=== PATIENT | female | born 1960 | race Native Hawaiian/Other Pacific Islander ===

== ENCOUNTER 2018-02-20 20:54 | Emergency (ER) | payer OTHER ==
[~2018-02-20] VITALS: Ht 165.1 cm; Wt 158.8 kg
[~2018-02-20 20:54] MED LIST: AMLODIPINE BESYLATE PO; ASPIRIN 81 LOW81 MG PO; CATAPRES-T0.2 MG/21 TD; CHLORTHALID25 MG PO; CYCL10TA35 PO; DOCU100C10 PO; FERROUS SULF325 M1 PO; FINGERSTIX; GLUCAGON1 MG IM; IMITREX100 MG PO; MIRALAX3350 N1 PO; NOVOLOG100 MG/ML SC; RISP0.5T2 PO; SENNO8.6 MG PO; SERT50TA PO; TRESIBA FL200 UNIT/M SC
[2018-02-20 21:21] LABS: PLATELET COUNT 254 K/uL (152-353)
[2018-02-20 22:05] LABS: POTASSIUM 3.4 mmol/L (3.6-5.2)
[2018-02-20 22:41] VITALS: BP 176/73; TEMP 98.7
[2018-02-20] MEDS ORDERED: PAIN RELIEF500 M2 PO (23:03)
[2018-02-20] MEDS ORDERED: ASPIRIN/ENTERIC81 MG PO (23:14)
[2018-02-20] MEDS ORDERED: DIVA500T2 PO (23:19)
[2018-02-20] MEDS ORDERED: IBUPROFEN200 M1 PO (23:28)
[2018-02-20] MEDS ORDERED: LEXAPRO10 MG PO (23:30)
[2018-02-20] MEDS ORDERED: RISP0.25 PO (23:42)
[2018-02-20] MEDS ORDERED: TRESIBA FL200 UNIT/M SC (23:57)
== END 2018-02-20 22:43 | disposition other institution (70) ==
LOC: ED 20:54
DX: Z04.6 Encounter for general psychiatric examination, requested by authority (principal); R46.89 Other symptoms and signs involving appearance and behavior; R05 Cough
CPT/HCPCS: 36415; 80053; 83735; 84100; 85027; 93005; 99285